=== PATIENT | female | born 1965 ===

== ENCOUNTER 2024-11-28 11:19 | Emergency (ER) | payer OTHER ==
[~2024-11-28] VITALS: Ht 162.6 cm; Wt 72.1 kg
== END 2024-11-28 12:02 | disposition home or self-care (01) ==
LOC: ER 11:19
DX: S50.312A Abrasion of left elbow, initial encounter (principal); M25.512 Pain in left shoulder; V89.2XXA Person injured in unspecified motor-vehicle accident, traffic, initial encounter
CPT/HCPCS: 73060